=== PATIENT | female | born 1960 | race Caucasian/White ===

== ENCOUNTER 2025-09-08 17:51 | Inpatient (IN) | payer OTHER ==
[~2025-09-08] VITALS: Ht 134.6 cm; Wt 76.2 kg
[2025-09-08] MEDS ORDERED: ONDANSETRON HCL/PF 4 MG/2 ML VIAL ONE (19:04)
[2025-09-08] MEDS ORDERED: PANTOPRAZOLE 40 MG VIAL ONE (19:04)
[2025-09-08] MEDS ORDERED: MORPHINE SULFATE INJ 4 MG/ML DISP.SYRIN ONE (19:04)
[2025-09-08] MEDS: IV NS 0.9% 1,000 ML BAG IV ONE (19:10)
[2025-09-08] MEDS: ONDANSETRON HCL/PF 4 MG/2 ML VIAL IVP ONE (19:11)
[2025-09-08] MEDS: PANTOPRAZOLE 40 MG VIAL IV ONE (19:12)
[2025-09-08] MEDS: MORPHINE SULFATE INJ 2 MG/ML DISP.SYRIN IV ONE (19:13)
[2025-09-08 19:14] LABS: PLATELET COUNT (AUTO) 337 K/uL (150-450); RED BLOOD CELL COUNT(AUTO) 3.31 MIL/uL (4.0-5.2); RED CELL DISTRIBUTION WIDTH 16.8 % (11.5-15.0); WHITE BLOOD COUNT (AUTO) 12.6 K/uL (4.3-11.0)
[2025-09-08 19:25] LABS: CALCIUM, SERUM 9.0 mg/dL (8.5-10.1); CREATININE 1.1 mg/dL (0.6-1.3); SODIUM SERUM 132.0 mmol/L (136-145); UREA NITROGEN, BLOOD 19.0 mg/dL (7-18)
[2025-09-08 19:29] LABS: INR 0.97 (0.91-1.10)
[2025-09-08 19:31] LABS: ASPARTATE AMINOTRANSFERASE 19.0 U/L (15-37); TOTAL PROTEIN, SERUM 7.9 g/dL (6.4-8.2)
[2025-09-08 20:02] LABS: APPEARANCE,URINE CLEAR (CLEAR); BLOOD, URINE Trace-intact Ery/uL (NEGATIVE); LEUKOCYTE ESTERASE ,URINE Negative (NEGATIVE); NITRITE, URINE NEGATIVE (NEGATIVE); UGLUCOSE Negative (NEGATIVE)
[2025-09-08 20:07] LABS: ADD URINE CULTURE NO; SQUAMOUS EPITHELIAL CELL,UR Few /HPF (None Seen)
[2025-09-08] MEDS ORDERED: PIPERACI/TAZO 3.375GM/D5W 50ML PB IV ONE (21:27)
[2025-09-08] MEDS: PIPERACILLIN /TAZOBACTAM 3.375 G in IV D5W 50 ML IV ONE (21:30)
[2025-09-08 22:10] VITALS: BP 137/78; TEMP 102.4; O2SAT 96
[2025-09-09] MEDS ORDERED: ZOLPIDEM TARTRATE 5 MG TABLET PO PRN
[2025-09-09] MEDS ORDERED: PIPERACILLIN /TAZOBACTAM 3.375 G in IV D5W 50 ML IV SCH
[2025-09-09] MEDS ORDERED: MAGNESIUM HYDROXIDE 30 ML UDC PO PRN
[2025-09-09] MEDS ORDERED: Z GUARD REMEDY 4 OZ OINT TP PRN
[2025-09-09] MEDS ORDERED: ACETAMINOPHEN 325 MG TABLET PO PRN
[2025-09-09] MEDS ORDERED: ONDANSETRON HCL/PF 4 MG/2 ML VIAL IVP PRN
[2025-09-09] MEDS ORDERED: MAG HYDROX/AL HYDROX/SIMETH 30 ML UDC PO PRN
[2025-09-09] MEDS: IV NS 0.9% 1,000 ML IV PRN (00:06)
[2025-09-09] MEDS: PIPERACI/TAZO 3.375GM/D5W 50ML PB IV ONE (06:11)
[2025-09-09] MEDS: PIPERACILLIN /TAZOBACTAM 3.375 G in IV D5W 50 ML IV ONE (06:13)
[2025-09-09 06:54] LABS: PLATELET COUNT (AUTO) 266 K/uL (150-450); RED BLOOD CELL COUNT(AUTO) 2.70 MIL/uL (4.0-5.2); RED CELL DISTRIBUTION WIDTH 17.5 % (11.5-15.0); WHITE BLOOD COUNT (AUTO) 13.3 K/uL (4.3-11.0)
[2025-09-09 07:18] LABS: ASPARTATE AMINOTRANSFERASE 18.0 U/L (15-37); CALCIUM, SERUM 8.2 mg/dL (8.5-10.1); CREATININE 1.2 mg/dL (0.6-1.3); PHOSPHORUS 4.3 mg/dL (2.5-4.9); SODIUM SERUM 139.0 mmol/L (136-145); TOTAL PROTEIN, SERUM 6.4 g/dL (6.4-8.2); UREA NITROGEN, BLOOD 19.0 mg/dL (7-18)
[2025-09-09 08:00] VITALS: BP 116/90; TEMP 98.2; O2SAT 96
[2025-09-09] MEDS: PANTOPRAZOLE 40 MG VIAL IV SCH (09:08)
[2025-09-09] MEDS: HYDROMORPHONE 1 MG/1 ML DISP.SYRIN IV PRN (09:20)
[2025-09-09] MEDS: Magnesium 1GM/D5W 100ML PREMIX 100 ML IV SCH ×2 (10:00→10:22)
[2025-09-09 10:38] LABS: IRON, SERUM 6 ug/dl (50-175)
[2025-09-09 10:47] LABS: LDL 107 mg/dL (0-99)
[2025-09-09] MEDS: ZOSYN IVPB 2.25 G in IV D5W 50ml IV SCH (12:16)
[2025-09-09] MEDS ORDERED: FENTANYL PF 250MCG/5ML AMPUL ONE (14:34)
[2025-09-09] MEDS ORDERED: ROCURONIUM BROMIDE 50 MG/5 ML ONE (14:34)
[2025-09-09] MEDS ORDERED: BUPIVACAINE 0.5 % PF 150 MG/30 ML VIAL ONE (14:42)
[2025-09-09] MEDS ORDERED: LIDOCAINE 1%-EPI 1:100,000 20 ML VIAL ONE (14:42)
[2025-09-09] MEDS ORDERED: ATOR40TA GT (14:52)
[2025-09-09] MEDS ORDERED: BISO1TAB4 PO (14:52)
[2025-09-09] MEDS ORDERED: OLME1TAB90 PO (14:52)
[2025-09-09] MEDS ORDERED: RIVA10TA PO (14:52)
[2025-09-09] MEDS ORDERED: AMLO-212 PO (14:52)
[2025-09-09] MEDS ORDERED: ALBUTEROL HALF STRENGTH 1.25 MG/3 ML VIAL.NEB ONE (17:05)
[2025-09-09] MEDS ORDERED: SUCCINYLCHOLINE CHLORIDE 20 MG/ML VIAL ONE (18:15)
[2025-09-09 18:33] LABS: ABG BASE EXCESS -12.2 mmol/L (-2.0-3.0); ABG OXYGEN SATURATION 97.9 % (94.0-98.0); ABG PCO2 55.7 mmHg (32.0-45.0); ABG PH 7.102 (7.350-7.450); ABG PO2 143.7 mmHg (83.0-108.0); ABG TOTAL HEMOGLOBIN 9.2 G/dL (12.0-16.0); PEEP,BG 5 cm H2O; SET RATE, BG 12.0; SITE, ABG RIGHT BRACHIAL; VT, ABG 500 mL
[2025-09-09] MEDS: IV LR 1000 ML 1,000 ML IV ONE (19:16)
[2025-09-09] MEDS ORDERED: NOREPINEPHRINE 8 MG in IV NS 0.9% 242 ML IV PRN (19:30)
[2025-09-09] MEDS: IV LR 1000 ML 1,000 ML IV SCH (19:58)
[2025-09-09 20:00] VITALS: BP 126/92; TEMP 97.7; O2SAT 100
[2025-09-09 20:25] LABS: PLATELET COUNT (AUTO) 252 K/uL (150-450); RED BLOOD CELL COUNT(AUTO) 2.99 MIL/uL (4.0-5.2); RED CELL DISTRIBUTION WIDTH 17.5 % (11.5-15.0); WHITE BLOOD COUNT (AUTO) 15.2 K/uL (4.3-11.0)
[2025-09-09] MEDS: PROPOFOL 100 ML IV PRN (20:25)
[2025-09-09 20:29] LABS: CALCIUM, SERUM 7.7 mg/dL (8.5-10.1); CREATININE 1.2 mg/dL (0.6-1.3); SODIUM SERUM 135 mmol/L (136-145); UREA NITROGEN, BLOOD 19 mg/dL (7-18)
[2025-09-09 20:45] LABS: LACTIC ACID 3.5 mmol/L (0.4-2.0)
[2025-09-09 21:00] VITALS: BP 93/57; O2SAT 100
[2025-09-09 21:26] LABS: ABG BASE EXCESS -6.9 mmol/L (-2.0-3.0); ABG OXYGEN SATURATION 97.0 % (94.0-98.0); ABG PCO2 32.5 mmHg (32.0-45.0); ABG PH 7.358 (7.350-7.450); ABG PO2 93.8 mmHg (83.0-108.0); ABG TOTAL HEMOGLOBIN 8.0 G/dL (12.0-16.0); FRACTIONATED INSPIRED OXYGEN 60.0 %; PEEP,BG 5 cm H2O; SET RATE, BG 30.0; SITE, ABG LEFT BRACHIAL; VT, ABG 400 mL
[2025-09-09 22:00] VITALS: BP 115/80; O2SAT 100
[2025-09-09 23:00] VITALS: BP 106/76; O2SAT 100
[2025-09-10] VITALS (62 sets, daily range): BP systolic 100–173; BP diastolic 60–113; TEMP 98.2–99.4; O2SAT 94–100
[2025-09-10 05:50] LABS: CALCIUM, SERUM 8.0 mg/dL (8.5-10.1); CREATININE 1.1 mg/dL (0.6-1.3); SODIUM SERUM 138.0 mmol/L (136-145); UREA NITROGEN, BLOOD 19.0 mg/dL (7-18)
[2025-09-10 05:53] LABS: PLATELET COUNT (AUTO) 229 K/uL (150-450); RED BLOOD CELL COUNT(AUTO) 2.41 MIL/uL (4.0-5.2); RED CELL DISTRIBUTION WIDTH 17.3 % (11.5-15.0); WHITE BLOOD COUNT (AUTO) 10.1 K/uL (4.3-11.0)
[2025-09-10] MEDS: POTASSIUM CL. PREMIX PERIPHER. 50 ML IV SCH (11:12)
[2025-09-10] MEDS: FUROSEMIDE 20 MG/2 ML VIAL IV ONE (11:12)
[2025-09-10] MEDS: SOD FERRIC GLUC 125 MG in IV NS 0.9% 100 ML IV SCH (14:48)
[2025-09-10] MEDS: IV LR 1000 ML 1,000 ML IV PRN (15:06)
[2025-09-10] MEDS: hydrALAZINE HCL IV 20 MG VIAL IV PRN (20:23)
[2025-09-11] VITALS (43 sets, daily range): BP systolic 99–162; BP diastolic 55–86; TEMP 98.2–98.9; O2SAT 93–99
[2025-09-11 05:28] LABS: PLATELET COUNT (AUTO) 223 K/uL (150-450); RED BLOOD CELL COUNT(AUTO) 2.97 MIL/uL (4.0-5.2); RED CELL DISTRIBUTION WIDTH 16.7 % (11.5-15.0); WHITE BLOOD COUNT (AUTO) 8.7 K/uL (4.3-11.0)
[2025-09-11 06:06] LABS: CALCIUM, SERUM 8.3 mg/dL (8.5-10.1); CREATININE 1.0 mg/dL (0.6-1.3); SODIUM SERUM 138.0 mmol/L (136-145); TOTAL PROTEIN, SERUM 6.1 g/dL (6.4-8.2); UREA NITROGEN, BLOOD 14.0 mg/dL (7-18)
[2025-09-11 06:16] LABS: ASPARTATE AMINOTRANSFERASE 33.0 U/L (15-37); PHOSPHORUS 2.2 mg/dL (2.5-4.9)
[2025-09-11] MEDS ORDERED: POTASSIUM PHOSPHATE MM 15 MMOL in IV NS 0.9% 250 ML IV SCH (08:00)
[2025-09-11] MEDS: POTASSIUM CHLORIDE 20 MEQ POWDER PACKET GT SCH (08:02)
[2025-09-11] MEDS: Magnesium 1GM/D5W 100ML PREMIX 100 ML IV SCH (08:04)
[2025-09-11] MEDS: POTASSIUM PHOSPHATE MM 7.5 MMOL in IV NS 0.9% 100 ML IV SCH (08:21)
[2025-09-11 10:06] LABS: ABG BASE EXCESS -4.1 mmol/L (-2.0-3.0); ABG OXYGEN SATURATION 96.5 % (94.0-98.0); ABG PCO2 28.6 mmHg (32.0-45.0); ABG PH 7.444 (7.350-7.450); ABG PO2 93.4 mmHg (83.0-108.0); ABG TOTAL HEMOGLOBIN 9.5 G/dL (12.0-16.0); FRACTIONATED INSPIRED OXYGEN 40.0 %; PEEP,BG 5 cm H2O; SITE, ABG LEFT BRACHIAL
[2025-09-11] MEDS ORDERED: oxyCODONE IR immediate release 5 MG TABLET PO PRN ×2 (21:30)
[2025-09-12] VITALS (27 sets, daily range): BP systolic 123–156; BP diastolic 71–121; TEMP 98.1–99.2; O2SAT 91–99
[2025-09-12 04:19] LABS: PLATELET COUNT (AUTO) 235 K/uL (150-450); RED BLOOD CELL COUNT(AUTO) 3.02 MIL/uL (4.0-5.2); RED CELL DISTRIBUTION WIDTH 17.0 % (11.5-15.0); WHITE BLOOD COUNT (AUTO) 7.4 K/uL (4.3-11.0)
[2025-09-12 04:30] LABS: ASPARTATE AMINOTRANSFERASE 25.0 U/L (15-37); CALCIUM, SERUM 8.3 mg/dL (8.5-10.1); CREATININE 0.9 mg/dL (0.6-1.3); PHOSPHORUS 3.1 mg/dL (2.5-4.9); SODIUM SERUM 141.0 mmol/L (136-145); TOTAL PROTEIN, SERUM 6.2 g/dL (6.4-8.2); UREA NITROGEN, BLOOD 12.0 mg/dL (7-18)
[2025-09-12] MEDS: Magnesium 1GM/D5W 100ML PREMIX 100 ML IV SCH (09:22)
[2025-09-13] VITALS: BP 127/67; TEMP 97.7; O2SAT 100
[2025-09-13 04:00] VITALS: BP 138/74; TEMP 98.8; O2SAT 97
[2025-09-13 06:31] LABS: PLATELET COUNT (AUTO) 270 K/uL (150-450); RED BLOOD CELL COUNT(AUTO) 3.15 MIL/uL (4.0-5.2); RED CELL DISTRIBUTION WIDTH 17.0 % (11.5-15.0); WHITE BLOOD COUNT (AUTO) 7.4 K/uL (4.3-11.0)
[2025-09-13 07:15] LABS: CALCIUM, SERUM 9.0 mg/dL (8.5-10.1); CREATININE 0.8 mg/dL (0.6-1.3); SODIUM SERUM 139.0 mmol/L (136-145); UREA NITROGEN, BLOOD 7.0 mg/dL (7-18)
[2025-09-13 08:00] VITALS: BP 139/87; TEMP 98.4; O2SAT 96
[2025-09-13 16:00] VITALS: BP 166/92; TEMP 98.1; O2SAT 93
[2025-09-13] MEDS: AMLODIPINE BESYLATE 5 MG TABLET PO SCH (17:45)
[2025-09-13 22:00] VITALS: BP 161/87; TEMP 98.5; O2SAT 98
[2025-09-14 04:00] VITALS: BP 155/85; TEMP 98.6; O2SAT 96
[2025-09-14 08:00] VITALS: BP 158/91; TEMP 98.2; O2SAT 95
[2025-09-14] MEDS ORDERED: AMOX-430 PO (08:56)
[2025-09-14] MEDS ORDERED: HCTZ PO SCH (09:00)
[2025-09-14] MEDS ORDERED: AMLODIPINE BESYLATE 5 MG TABLET PO SCH (09:00)
[2025-09-14] MEDS ORDERED: BISOPROL PO SCH (09:00)
[2025-09-14 09:09] VITALS: BP 158/91
[2025-09-14] MEDS: PANTOPRAZOLE 40 MG TABLET.DR PO SCH (09:09)
[2025-09-14] MEDS: RIVAROXABAN 10 MG TABLET PO SCH (09:10)
== END 2025-09-14 10:45 | disposition home or self-care (01) | DRG 397 ==
LOC: ER 18:20 → MED 21:46 → ICU 09-09 18:46 → TELE1 09-12 18:23 → MEDSG1 09-13 08:34
PROVIDERS: ADMIT Nurse Practitioner Acute Care; ATTEND Internal Medicine
PROC: 0DTJ4ZZ Resection of Appendix, Percutaneous Endoscopic Approach (ICD-10-PCS; principal; 2025-09-09 14:30)
PROC: 30233N1 Transfusion of Nonautologous Red Blood Cells into Peripheral Vein, Percutaneous Approach (ICD-10-PCS; 2025-09-10)
DX: K35.33 Acute appendicitis with perforation, localized peritonitis, and gangrene, with abscess (principal); J96.02 Acute respiratory failure with hypercapnia; E87.1 Hypo-osmolality and hyponatremia; K56.600 Partial intestinal obstruction, unspecified as to cause; Z68.41 Body mass index [BMI] 40.0-44.9, adult; D68.9 Coagulation defect, unspecified; I71.43 Infrarenal abdominal aortic aneurysm, without rupture; D63.8 Anemia in other chronic diseases classified elsewhere; E66.9 Obesity, unspecified; E78.5 Hyperlipidemia, unspecified; E83.42 Hypomagnesemia; F17.210 Nicotine dependence, cigarettes, uncomplicated; I25.10 Atherosclerotic heart disease of native coronary artery without angina pectoris; K56.41 Fecal impaction; Z79.01 Long term (current) use of anticoagulants; Z95.5 Presence of coronary angioplasty implant and graft; Z71.3 Dietary counseling and surveillance; I73.9 Peripheral vascular disease, unspecified; R73.9 Hyperglycemia, unspecified; I10 Essential (primary) hypertension; J44.9 Chronic obstructive pulmonary disease, unspecified
CPT/HCPCS: 36415; 36600; 71045-TC; 80048-TC; 80053-TC; 80061-TC; 80076-TC; 81001; 82728-TC; 82803-TC; 82962-TC; 83540-TC; 83605-TC; 83690-TC; 83735-TC; 84100-TC; 85025-TC; 85730-TC; 86850-TC; 87081-TC; 88304-TC; 93307-TC; 94002-TC; 94003-TC; 94799-TC; A4223; G0378; J0330; J0360; J0690; J1100; J1171; J1938; J2270; J2312; J2405; J2470; J2543; J2704; J2916; J3010; J3475; J3480; J3490; J7030; J7040; J7050; J7060; J7120; P9016